=== PATIENT | female | born 1960 | race Caucasian/White ===

== ENCOUNTER 2017-06-13 21:08 | Emergency (ER) | payer MEDICAID, OTHER ==
[2017-06-13] MEDS ORDERED: Clindamycin HCl 150 MG Cap PO ONE (21:23)
[2017-06-13] MEDS ORDERED: Acetaminophen/HYDROcodone 325-5 MG Tab PO ONE (21:26)
--- NOTE | 2017-06-13 21:30 | EDM.PDOC ---
ED HPI GENERAL MEDICAL PROBLEM - General Chief Complaint: ENT Problem Stated Complaint: ABSCESS TOOTH Time Seen by Provider: 06/13/17 21:15 Source of Information: Reports: Patient History Limitations: Reports: No Limitations - History of Present Illness INITIAL COMMENTS - FREE TEXT/NARRATIVE: Toothache for a couple days. Has no dentist. Pain upper right. Onset: Gradual Onset Date: 06/11/17 Duration: Day(s):, Getting Worse Location: Reports: Face Quality: Reports: Ache Severity: Moderate Improves with: Reports: None Worsens with: Reports: Other (? time) Context: Reports: Other (Has not been to a dentist in years) Associated Symptoms: Reports: No Other Symptoms. Denies: Fever/Chills, Nausea/ Vomiting Treatments [employer]: Reports: Other (see below) (none) - Related Data Allergies Allergy/AdvReac Type Severity Reaction Status Date / Time Penicillins Allergy Anaphylactic Verified 06/13/17 21:19 Shock sertraline [From Zoloft] Allergy Headache Verified 06/13/17 21:19 Home Meds: Home Meds Acetaminophen/HYDROcodone [Saxon 325-5 MG] 1 - 2 tab PO Q6H PRN #14 tab [Rx] Aspirin 81 mg PO DAILY 06/13/17 [History] Carvedilol [Coreg] 6.25 mg PO DAILY 06/13/17 [History] Clindamycin HCl [Cleocin HCl] 300 mg PO TID #20 capsule 06/13/17 [Rx] Lisinopril [Prinivil] 20 mg PO DAILY 06/13/17 [History] atorvaSTATin [Lipitor] 40 mg PO BEDTIME 06/13/17 [History] Past Medical History Cardiovascular History: Reports: High Cholesterol, Hypertension, Stents Respiratory History: Reports: Other (See Below) Other Respiratory History: chronic smoker. Social & Family History - Family History Family Medical History: Noncontributory ED ROS ENT - Review of Systems Review Of Systems: See Below Constitutional: Reports: No Symptoms HEENT: Reports: Dental Pain Respiratory: Reports: No Symptoms Cardiovascular: Reports: No Symptoms GI/Abdominal: Reports: No Symptoms Skin: Reports: No Symptoms Neurological: Reports: No Symptoms ED EXAM, ENT - Physical Exam Exam: See Below Exam Limited By: No Limitations General Appearance: Alert, WD/WN, No Apparent Distress Eye Exam: Bilateral Eye: Normal Inspection Ears: Normal External Exam, Normal Canal, Hearing Grossly Normal, Normal TMs Nose: Normal Inspection, Normal Mucousa, No Blood Mouth/Throat: Normal Gums, Normal Lips, Normal Oropharynx, Dental Pain, Dental Tenderness, Other (No facial swelling. Tender upper molar with percussion. Decay present. Tobacco stained teeth. ) Head: Atraumatic, Normocephalic Neck: Normal Inspection, Supple, Non-Tender Respiratory/Chest: No Respiratory Distress, Lungs Clear, Normal Breath Sounds, No Accessory Muscle Use Cardiovascular: Regular Rate, Rhythm Neurological: Alert, Oriented, CN II-XII Intact, Normal Cognition, No Motor/ Sensory Deficits Psychiatric: Normal Affect, Normal Mood Skin: Warm, Dry, Intact, Normal Color, No Rash Lymphatic: No Adenopathy Course - Vital Signs Last Recorded V/S: Last Vital Signs Temp 36.6 C 06/13/17 21:15 Pulse 97 06/13/17 21:15 Resp 17 06/13/17 21:15 BP 125/82 06/13/17 21:15 Pulse Ox 97 06/13/17 21:15 - Orders/Labs/Meds Meds: Medications Discontinued Medications Generic Name Dose Route Start Last Admin Trade Name Freq PRN Reason Stop Dose Admin Clindamycin HCl 300 mg 06/13/17 21:23 Cleocin PO 06/13/17 21:24 ONETIME ONE Departure - Departure Time of Disposition: 21:30 Disposition: Home, Self-Care 01 Condition: Good Clinical Impression: Pain, dental - Discharge Information Prescriptions: Acetaminophen/HYDROcodone [Saxon 325-5 MG] 1 - 2 tab PO Q6H PRN #14 tab PRN Reason: Pain Clindamycin HCl [Cleocin HCl] 300 mg PO TID #20 capsule Referrals: Anayeli Dominguez MD [Primary Care Provider] - Forms: ED Department Discharge Additional Instructions: Take clindamycin as directed for infection. Take ibuprofen 400 mg every 6 hrs with food as needed for pain relief. Add acetaminophen or Saxon for added relief. See a dentist shree. If your dentist appt is long way off in the future, you may need to see your doctor in the interim.
== END 2017-06-13 21:34 | disposition home or self-care (01) ==
LOC: FB.ED 21:08
DX: K02.9 Dental caries, unspecified (principal); E78.00 Pure hypercholesterolemia, unspecified; I10 Essential (primary) hypertension; Z88.0 Allergy status to penicillin; Z88.8 Allergy status to other drugs, medicaments and biological substances; Z79.82 Long term (current) use of aspirin; Z79.899 Other long term (current) drug therapy
CPT/HCPCS: 99282; A9270